=== PATIENT | male | born 1935 | race Caucasian/White ===

== ENCOUNTER 2020-02-27 08:09 | Outpatient (CLI) | payer MEDICARE, OTHER ==
[2020-02-27 15:19] LABS: CHOL/HDL RATIO 3.2 (<5.0); CHOLESTEROL 170 mg/dL; HDL CHOLESTEROL 53 mg/dL; LDL CHOLESTEROL,CALCULATED 100 mg/dL; LDL/HDL RATIO 1.9 (<3.6); VLDL CHOLESTEROL 17 mg/dL
== END 2020-02-27 08:10 | disposition home or self-care (01) ==
LOC: LAB.S 08:09
PROVIDERS: ATTEND Nuclear Medicine Nuclear Cardiology
DX: E78.5 Hyperlipidemia, unspecified (principal)
CPT/HCPCS: 36415; 80061; 83721

== ENCOUNTER 2020-05-26 08:07 | Outpatient (CLI) | payer MEDICARE, OTHER ==
[2020-05-26 15:38] LABS: CHOL/HDL RATIO 3.2 (<5.0); CHOLESTEROL 188 mg/dL; HDL CHOLESTEROL 58 mg/dL; LDL CHOLESTEROL,CALCULATED 115 mg/dL; TRIGLYCERIDES 77 mg/dL; VLDL CHOLESTEROL 15 mg/dL
== END 2020-05-26 08:08 | disposition home or self-care (01) ==
LOC: LAB.S 08:07
PROVIDERS: ATTEND Nuclear Medicine Nuclear Cardiology
DX: E78.5 Hyperlipidemia, unspecified (principal)
CPT/HCPCS: 36415; 80061; 83721